=== PATIENT | male | born 1990 | race Caucasian/White ===

== ENCOUNTER 2016-08-30 18:13 | Emergency (ER) | payer BC | END 2016-08-30 20:18 | disposition home or self-care (01) | LOC: D.ER 18:13 | DX: S40.012A Contusion of left shoulder, initial encounter (principal); S39.012A Strain of muscle, fascia and tendon of lower back, initial encounter; V43.52XA Car driver injured in collision with other type car in traffic accident, initial encounter; I10 Essential (primary) hypertension ==

== ENCOUNTER 2018-01-14 22:31 | Emergency (ER) | payer SELFPAY ==
[~2018-01-14] VITALS: Ht 180.3 cm; Wt 136.4 kg
[2018-01-14 22:44] VITALS: Ht 180.3 cm; Wt 136.4 kg
[2018-01-15] MEDS ORDERED: VISTARIL25 MG PO (00:08)
[2018-01-15] MEDS ORDERED: PREDNISONE10 MG PO (00:08)
[2018-01-15 00:24] VITALS: BP 112/85
== END 2018-01-15 00:25 | disposition home or self-care (01) ==
LOC: D.ER 22:31
DX: T78.40XA Allergy, unspecified, initial encounter (principal); X58.XXXA Exposure to other specified factors, initial encounter